=== PATIENT | female | born 1995 | race Caucasian/White ===

== ENCOUNTER 2018-07-09 19:47 | Emergency (ER) | payer BC ==
--- NOTE | 2018-07-09 21:19 | ER Report ---
History and Physical Time Seen By MD: 21:12 Hx. of Stated Complaint: rash, to head neck with pain of movement HPI/ROS CHIEF COMPLAINT: rash HISTORY OF PRESENT ILLNESS: This is a 23 year old female. She has a rash at the base of her neck at the hairline. Started this morning. Had a brim flexer "color run" and thinks that this may be a reaction to the color. She has a history of sensitivity and eczema in the past. Pain and burning sensation, worse with movement of the neck and hair. Did shampoo her hair last night, but wonders if some of the chemicals remained to cause the problem. No shortness of breath. No problems with swallowing. No other rashes. No other unusual exposures. Allergies: Coded Allergies: No Known Drug Allergies (Unverified , 07/09/18) Home Meds Active Scripts Prednisone (PREDNISONE) 20 Mg Tablet, 40 MG PO QDAY, #6 TAB 0 Refills Prov:VASQUEZ SOLITARIO MD 07/09/18 Reviewed Nurses Notes: Yes Hx Substance Use Disorder: No Hx Alcohol Use: Yes (occ) Constitutional Vital Sign - Last 24 Hours 07/09/18 07/09/18 20:00 21:36 Temp 97.1 Pulse 102 107 Resp 18 16 B/P (MAP) 142/83 124/70 (88) Pulse Ox 94 95 O2 Delivery Room Air Physical Exam General: Alert, no acute distress. ENT: normal oropharynx Respiratory: Lungs are clear. Cardiovascular: normal capillary refill. Regular rate and rhythm. Skin: Redness along the hairline of the neck. Does not go further up into the scalp. Blanches. No scale, vesicles or pustules. Medical Decision Making ED Course/Re-evaluation ED Course Contact dermatitis appears the most likely cause. Will use Prednisone and Benadryl for the next few days. Decision to Disposition Date: Jul 09, 2018 Decision to Disposition Time: 21:20 Depart Departure Latest Vital Signs Vital Signs Date Time Temp Pulse Resp B/P (MAP) Pulse Ox O2 Delivery O2 Flow Rate FiO2 07/09/18 21:36 107 16 124/70 (88) 95 Room Air 07/09/18 20:00 97.1 Impression: Primary Impression: Contact dermatitis Condition: Improved Disposition: HOME OR SELF-CARE New Scripts Prednisone (PREDNISONE) 20 Mg Tablet 40 MG PO QDAY, #6 TAB 0 Refills Prov: VASQUEZ SOLITARIO MD 07/09/18 Patient Instructions: Contact Dermatitis (ED) Additional Instructions: Take Prednisone 20mg tablets, take 2 tablets once a day for 3 more days starting tomorrow morning. Take Benadryl 25mg, one every 6hours as needed for rash, itching or burning. Problem Qualifiers Primary Impression: Contact dermatitis Contact dermatitis type: irritant Contact dermatitis trigger: other chemical product Qualified Codes: L24.5 - Irritant contact dermatitis due to other chemical products VASQUEZ SOLITARIO MD Jul 09, 2018 21:19
[2018-07-09] MEDS ORDERED: diphenhydrAMINE 25 MG CAP PO ONE (21:20)
[2018-07-09] MEDS ORDERED: predniSONE 20 MG TAB PO ONE (21:20)
[2018-07-09] MEDS ORDERED: PRED20TA6 PO (21:21)
[2018-07-09 21:36] VITALS: BP 124/70
== END 2018-07-09 21:45 | disposition home or self-care (01) ==
LOC: ER 21:44
DX: L24.5 Irritant contact dermatitis due to other chemical products (principal)
CPT/HCPCS: 99283; J7512; Q0163

== ENCOUNTER 2019-06-25 20:37 | Emergency (ER) | payer OTHER, BC ==
[~2019-06-25 20:37] MED LIST: PRED20TA6 PO
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
[2019-06-26 00:03] VITALS: BP 135/67
--- NOTE | 2019-06-26 00:07 | RADIOLOGY IMAGING REPORT ---
FACILITY: [facility] PATIENT NAME: Thi Ho : 1995 MR: [id number] V: [id number] EXAM DATE: ORDERING PHYSICIAN: VASQUEZ SOLITARIO TECHNOLOGIST: Location: [facility] [place] Patient: Thi Ho : 1995 Visit/Account:[id number] Date of Sevice: 06/25/2019 Pelvis and left hip: Indication: Injury. Technique: Two views were obtained. Comparison: None available. Findings: There is no evidence of fracture, dislocation, or other acute deformity. No joint space dwayne rowing, erosion, or osteophyte formation is noted. There is uniform mineralization of the skeletal st ructures. There is no evidence of soft tissue deformity or calcification. IMPRESSION: No acute deformity. Report Dictated By: Rohit Solomon MD at 06/25/2019 11:56 PM Report E-Signed By: Rohit Solomon MD at 06/25/2019 11:59 PM WSN:[id number]
--- NOTE | 2019-06-26 00:07 | RADIOLOGY IMAGING REPORT ---
FACILITY: [facility] PATIENT NAME: Thi Ho : 1995 MR: [id number] V: [id number] EXAM DATE: ORDERING PHYSICIAN: VASQUEZ SOLITARIO TECHNOLOGIST: Location: [facility] [place] Patient: Thi Ho : 1995 Visit/Account:[id number] Date of Sevice: 06/25/2019 KNEE: Indication: Injury. Technique: 4 views of the knee were obtained. Comparison: None available. Findings: There is no evidence of fracture, dislocation, or other acute deformity. There is normal mi neralization of the skeletal structures. There is no evidence of joint space narrowing or osteophyte formation. The periarticular soft tissues appear unremarkable. IMPRESSION: Negative left knee. Report Dictated By: Rohit Solomon MD at 06/25/2019 11:59 PM Report E-Signed By: Rohit Solomon MD at 06/25/2019 11:59 PM WSN:[id number]
[2019-06-26] MEDS ORDERED: IBUPROFEN 800 MG TAB PO ONE (00:10)
[2019-06-26] MEDS ORDERED: oxyCODONE/ACETAMIN 5/325MG TH 2 TAB/BOTTLE PO ONE (00:10)
[2019-06-26] MEDS ORDERED: oxyCODON/ACET (*)5/325MG (CII) 1 TAB TAB PO ONE (00:10)
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
--- NOTE | 2019-06-26 00:21 | RADIOLOGY IMAGING REPORT ---
FACILITY: [facility] [place] PATIENT NAME: Thi Ho : 1995 MR: [id number] V: [id number] EXAM DATE: ORDERING PHYSICIAN: VASQUEZ SOLITARIO TECHNOLOGIST: Location: [facility] [place] Patient: Thi Ho : 1995 Visit/Account:[id number] Date of Sevice: 06/25/2019 CT of the thoracic spine without contrast: Indication: Injury. Technique: Helical CT was performed through the thoracic spine without contrast. Axial, coronal, and sagittal reconstructions are reviewed. One of the following dose optimization techniques was utilized in the performance of this exam: Autom ated exposure control; adjustment of the mA and/or kV according to the patient's size; or use of an i terative reconstruction technique. Specific details can be referenced in the facility's radiology CT exam operational policy. Comparison: None available. Findings: There is no evidence of fracture, compression, subluxation, or other acute deformity. There is uniform mineralization. The skeletal structures are otherwise unremarkable. No paraspinal soft ti ssue abnormalities are identified. IMPRESSION: No evidence of fracture or acute deformity. Report Dictated By: Rohit Solomon MD at 06/26/2019 12:08 AM Report E-Signed By: Rohit Solomon MD at 06/26/2019 12:12 AM WSN:[id number]
--- NOTE | 2019-06-26 00:21 | RADIOLOGY IMAGING REPORT ---
FACILITY: [facility] PATIENT NAME: Thi Ho : 1995 MR: [id number] V: [id number] EXAM DATE: ORDERING PHYSICIAN: VASQUEZ SOLITARIO TECHNOLOGIST: Location: [facility] Patient: Thi Ho : 1995 Visit/Account:[id number] Date of Sevice: 06/25/2019 FEMUR: Indication: Injury. Technique: Multiple frontal and lateral views were obtained. Comparison: None available. Findings: There is no evidence of fracture, dislocation, or other acute deformity. There is uniform m ineralization of the skeletal structures. There is no evidence of periarticular calcification or soft tissue deformity. The soft tissues appear unremarkable. IMPRESSION: Negative left femur. Report Dictated By: Rohit Solomon MD at 06/26/2019 12:12 AM Report E-Signed By: Rohit Solomon MD at 06/26/2019 12:13 AM WSN:[id number]
[2019-06-26] MEDS ORDERED: OXYC-865 PO (00:30)
== END 2019-06-26 00:30 | disposition home or self-care (01) ==
LOC: ER 20:49
DX: S70.12XA Contusion of left thigh, initial encounter (principal); S16.1XXA Strain of muscle, fascia and tendon at neck level, initial encounter; S39.012A Strain of muscle, fascia and tendon of lower back, initial encounter; V87.7XXA Person injured in collision between other specified motor vehicles (traffic), initial encounter
CPT/HCPCS: 72125; 72128; 72131; 73502; 73552; 73564; 99284; L0172